=== PATIENT | female | born 1985 | race Hispanic/Latino ===

== ENCOUNTER 2018-04-23 09:13 | Emergency (ER) | payer OTHER ==
[~2018-04-23] VITALS: Ht 165.1 cm; Wt 71.2 kg
[2018-04-23 09:49] VITALS: BP 136/92
== END 2018-04-23 10:00 | disposition home or self-care (01) ==
LOC: ER 09:13
DX: O99.612 Diseases of the digestive system complicating pregnancy, second trimester (principal); K21.9 Gastro-esophageal reflux disease without esophagitis; Z3A.16 16 weeks gestation of pregnancy
CPT/HCPCS: 99282